=== PATIENT | female | born 1975 | race Caucasian/White ===

== ENCOUNTER 2018-06-21 14:17 | Emergency (ER) | payer OTHER ==
[~2018-06-21] VITALS: Ht 177.8 cm; Wt 97.5 kg
[~2018-06-21 14:17] MED LIST: ADVAIR 250-501 EACH; ALBUTEROL2.5 MG/32 IH; ALLEGRA60 MG; ASPIRIN325; AZITHROMYCIN 2250 MG PO; LEXAPRO 10 MG T10 MG; PREDNISONE 20 M20 M1; PRENATAL; PROAIR HFA8.5 GM; SYNTHROID75 MCG
[2018-06-21] MEDS ORDERED: LEXAPRO20 MG PO (14:34)
[2018-06-21] MEDS ORDERED: IBU800 MG PO (14:58)
[2018-06-21] MEDS ORDERED: FLEXERIL PO (14:58)
[2018-06-21 15:14] VITALS: BP 165/94
== END 2018-06-21 15:15 | disposition home or self-care (01) ==
LOC: M.ERS 14:17
DX: F32.9 Major depressive disorder, single episode, unspecified (principal); J45.909 Unspecified asthma, uncomplicated; E03.9 Hypothyroidism, unspecified; Z90.710 Acquired absence of both cervix and uterus; Z88.1 Allergy status to other antibiotic agents; Z88.0 Allergy status to penicillin; Z88.2 Allergy status to sulfonamides

== ENCOUNTER 2019-08-06 13:18 | Emergency (ER) | payer OTHER ==
[~2019-08-06] VITALS: Ht 175.3 cm; Wt 106.6 kg
[~2019-08-06 13:18] MED LIST changes: +FLEXERIL PO; +IBU800 MG PO; +LEXAPRO20 MG PO
[2019-08-06] MEDS ORDERED: LIPITOR 20 MG T20 M1 PO (13:33)
[2019-08-06 14:53] VITALS: BP 147/82
== END 2019-08-06 14:53 | disposition home or self-care (01) ==
LOC: M.ERS 13:18
DX: S00.83XA Contusion of other part of head, initial encounter (principal); J45.909 Unspecified asthma, uncomplicated; E03.9 Hypothyroidism, unspecified; F32.9 Major depressive disorder, single episode, unspecified; Z98.890 Other specified postprocedural states; Z88.1 Allergy status to other antibiotic agents; Z88.2 Allergy status to sulfonamides; Z88.0 Allergy status to penicillin; Z88.6 Allergy status to analgesic agent; Z90.710 Acquired absence of both cervix and uterus; W01.198A Fall on same level from slipping, tripping and stumbling with subsequent striking against other object, initial encounter; Y92.89 Other specified places as the place of occurrence of the external cause; Y93.89 Activity, other specified; Y99.8 Other external cause status